=== PATIENT | male | born 1950 | race Caucasian/White ===

== ENCOUNTER 2017-07-17 10:26 | Emergency (ER) | payer MEDICARE, OTHER ==
[2017-07-17] MEDS ORDERED: Aspirin 325 MG TAB ONE (11:04)
--- NOTE | 2017-07-17 11:15 | RAD ---
PORTABLE CHEST 1 VIEW: Date: 07/17/17 Time: 1054 hours HISTORY: Chest pain. FINDINGS/IMPRESSION: Comparison made with exam of 05/31/15. Changes of median sternotomy are again seen. The heart size is prominent. The lungs are well expanded without confluent areas of consolidation, pneumothorax, haley pulmonary edema, or pleural effusions. POS: [facility]
[2017-07-17 11:49] LABS: INR-International Normal Ratio 1.2; Prothrombin Time 15.2 SEC (12.0-14.7)
[2017-07-17 11:50] LABS: PTT 31.5 SEC (22.9-36.1)
[2017-07-17 11:53] LABS: #Eosinphils 0.1 thou/uL (0.0-0.7); #Lymphocytes 1.4 thou/uL (1.20-3.40); #Monocytes 0.3 thou/uL (0.11-0.59); %Basophils 0.9 % (0.0-1.0); %Eosinophils 2.7 % (0.0-10.0); %Lymphocytes 27.9 % (21.0-51.0); %Monocytes 6.8 % (0.0-10.0); %Neutrophils 61.7 % (42.0-75.0); Hemoglobin 15.8 g/dL (14.0-18.0); Mean Corpuscular HGB CONC 34.2 g/dL (32.0-36.0); Mean Corpuscular Hemoglobin 32.4 pg (27.0-31.0); Mean Corpuscular Volume 94.8 fl (80.0-94.0); PLT Morphology Comment Appears Decreased; Platelet Count 78 thou/uL (130-400); RBC Distribution Width 12.8 % (11.5-14.5); Red Blood Cell (RBC) Count 4.86 mill/uL (4.70-6.10); White Blood Cell (WBC) Count 4.9 thou/uL (4.8-10.8)
[2017-07-17 12:01] LABS: Bilirubin, Total 0.8 mg/dL (0.2-1.2); Calcium 9.3 mg/dL (7.8-10.44); Globulin 3.2 g/dL (2.4-3.5); Magnesium 2.2 mg/dL (1.6-2.6); Potassium 4.5 mmol/L (3.5-5.1); Protein, Total 7.2 g/dL (5.8-8.1)
[2017-07-17 12:03] LABS: CKMB 1.6 ng/mL (0-6.6); Troponin I 0.011 ng/mL (< 0.028)
== END 2017-07-17 13:11 | disposition short-term general hospital (02) ==
LOC: MADERS 10:26
DX: I49.9 Cardiac arrhythmia, unspecified (principal); E78.5 Hyperlipidemia, unspecified; K74.60 Unspecified cirrhosis of liver; I10 Essential (primary) hypertension; Z87.891 Personal history of nicotine dependence; Z79.82 Long term (current) use of aspirin; Z79.899 Other long term (current) drug therapy
CPT/HCPCS: 36415; 71045; 80053; 82553; 83735; 83880; 84484; 85025; 85610; 85730; 93005; 94760

== ENCOUNTER 2018-02-25 10:34 | Emergency (ER) | payer MEDICARE ==
[2018-02-25] MEDS ORDERED: Lidocaine 1% 20 ML MDV ONE (10:51)
[2018-02-25] MEDS ORDERED: Sulfameth/Trimethoprim DS 800-160mg TAB ONE (11:38)
== END 2018-02-25 11:35 | disposition home or self-care (01) ==
LOC: MADERS 10:34
DX: L02.31 Cutaneous abscess of buttock (principal); Z79.899 Other long term (current) drug therapy; Z79.82 Long term (current) use of aspirin
CPT/HCPCS: 10060; J2001

== ENCOUNTER 2018-02-27 08:44 | Emergency (ER) | payer MEDICARE | END 2018-02-27 09:30 | disposition home or self-care (01) | LOC: MADERS 08:44 | DX: Z48.817 Encounter for surgical aftercare following surgery on the skin and subcutaneous tissue (principal); I10 Essential (primary) hypertension; F17.220 Nicotine dependence, chewing tobacco, uncomplicated; K74.60 Unspecified cirrhosis of liver; Z79.82 Long term (current) use of aspirin; Z79.899 Other long term (current) drug therapy | CPT/HCPCS: 99282 ==

== ENCOUNTER 2018-03-27 07:35 | Emergency (ER) | payer MEDICARE ==
--- NOTE | 2018-03-27 09:16 | RAD ---
PA AND LATERAL CHEST: History: Cough and wheezing. FINDINGS/IMPRESSION: Comparison is made with exam of 09-03-16. There are changes of median sternotomy. The heart size is borderline. The lungs are well expanded. No pneumothorax or pleural effusion are seen. No lobar consolidation is identified. There is suggestion of a nodular density in the posterior lower lung on the lateral view only. This was not seen on the comparison study. Further evaluation with CT scan is recommended. Code T
[2018-03-27] MEDS ORDERED: guaiFENesin ER 600 MG TAB ONE (09:24)
[2018-03-27] MEDS ORDERED: Ibuprofen 600 MG TAB ONE (09:24)
--- NOTE | 2018-03-27 10:16 | CT ---
CHEST CT SCAN WITHOUT IV CONTRAST: History: Cough, nodular lesion on chest x-ray in a 67-year-old male. Comparison: Chest plain film 03-27-18. Prior CT abdomen/pelvis 05-21-16. FINDINGS: Post underlying sternotomy. Extensive three vessel coronary artery calcific disease. Two small calcif ied nodules in the right upper lobe, evidence for old granulomatous disease. Splenomegaly with the sp elke measuring 16 cm. Lymph node noted in the left paracardial fat pad up to [address] able from the prior 2016 study. No evidence for other pulmonary nodule. I feel that the density seen on the lateral view on the prior chest x-ray is probably just a confluence of vessels. Multiple galls tones. Hepatic changes in the liver. IMPRESSION: Two very tiny calcified granulomata in the right upper lobe. No evidence for other pulmonary nodule. The density seen on the lateral view of the chest x-ray is presumed to be just a confluence of shadow s. No evidence for associated pulmonary nodule. Splenomegaly. Cholelithiasis. Stable lymph node in th e left pericardial fat. Other findings are stable. POS: [facility]
== END 2018-03-27 09:40 | disposition home or self-care (01) ==
LOC: MADERS 07:35
DX: J20.9 Acute bronchitis, unspecified (principal); J06.9 Acute upper respiratory infection, unspecified; I25.2 Old myocardial infarction; I10 Essential (primary) hypertension; F17.220 Nicotine dependence, chewing tobacco, uncomplicated; Z79.82 Long term (current) use of aspirin; Z79.899 Other long term (current) drug therapy
CPT/HCPCS: 71046; 71250; J7620

== ENCOUNTER 2018-03-31 14:13 | Emergency (ER) | payer MEDICARE | END 2018-03-31 15:16 | disposition home or self-care (01) | LOC: MADERS 14:13 | DX: J20.9 Acute bronchitis, unspecified (principal); I25.2 Old myocardial infarction; I10 Essential (primary) hypertension; F17.220 Nicotine dependence, chewing tobacco, uncomplicated; Z79.82 Long term (current) use of aspirin; Z79.899 Other long term (current) drug therapy | CPT/HCPCS: 99283 ==

== ENCOUNTER 2018-04-17 09:41 | Emergency (ER) | payer MEDICARE | END 2018-04-17 10:15 | disposition home or self-care (01) | LOC: MADERS 09:41 | DX: Z48.817 Encounter for surgical aftercare following surgery on the skin and subcutaneous tissue (principal); I10 Essential (primary) hypertension; I25.2 Old myocardial infarction; F17.220 Nicotine dependence, chewing tobacco, uncomplicated; Z79.899 Other long term (current) drug therapy; Z79.82 Long term (current) use of aspirin; K74.60 Unspecified cirrhosis of liver | CPT/HCPCS: 99282 ==

== ENCOUNTER 2019-05-17 01:29 | Emergency (ER) | payer MEDICARE ==
[2019-05-17 02:27] LABS: ALT (SGPT) 46 U/L (8-55); AST (SGOT) 22 U/L (5-34); Albumin 4.1 g/dL (3.4-4.8); Alkaline Phosphatase 64 U/L (40-110); Anion Gap 12 mmol/L (10-20); BUN (Urea Nitrogen) 18 mg/dL (8.4-25.7); Bilirubin, Total 0.5 mg/dL (0.2-1.2); Calc. Creatinine Clearance 0 mL/min (70-130); Calcium 9.6 mg/dL (7.8-10.44); Carbon Dioxide 26 mmol/L (23-31); Chloride 104 mmol/L (98-107); Estimated GFR-MDRD 86; Glucose 143 mg/dL (80-115); Magnesium 1.8 mg/dL (1.6-2.6); Protein, Total 7.1 g/dL (5.8-8.1); Sodium 138 mmol/L (136-145)
[2019-05-17 02:33] LABS: #Eosinphils 0.1 thou/uL (0.0-0.7); #Monocytes 0.3 thou/uL (0.11-0.59); #Neutrophils 2.7 thou/uL (1.40-6.50); %Basophils 0.6 % (0.0-1.0); %Eosinophils 1.8 % (0.0-10.0); %Lymphocytes 24.2 % (21.0-51.0); %Monocytes 6.8 % (0.0-10.0); %Neutrophils 66.5 % (42.0-75.0); Hemoglobin 14.9 g/dL (14.0-18.0); MDiff Complete? YES; Macrocytosis MODERATE=16-30 cells (100X) (0-5/hpf); Mean Corpuscular HGB CONC 31.3 g/dL (32.0-36.0); Mean Corpuscular Hemoglobin 31.2 pg (27.0-31.0); Mean Corpuscular Volume 99.6 fL (78.0-98.0); Mean Platelet Volume 11.7 fL (7.4-10.4); Platelet Count 71 thou/uL (130-400); RBC Distribution Width 12.5 % (11.5-14.5); Red Blood Cell (RBC) Count 4.78 mill/uL (4.70-6.10)
== END 2019-05-17 02:56 | disposition home or self-care (01) ==
LOC: MADERS 01:29
DX: I10 Essential (primary) hypertension (principal); I25.2 Old myocardial infarction; F17.220 Nicotine dependence, chewing tobacco, uncomplicated
CPT/HCPCS: 36415; 80053; 83735; 84443; 85025; 93005

== ENCOUNTER 2019-05-30 09:56 | Outpatient (CLI) | payer MEDICARE ==
--- NOTE | 2019-05-30 10:14 | RAD ---
Chest 2 views HISTORY: Bronchitis. COMPARISON: 03/27/2018. FINDINGS: Cardiac silhouette is unremarkable. Pulmonary vasculature upper limits of normal. Mediastin um is midline with postoperative changes. No confluent airspace consolidation, pneumothorax, or pleural fluid evident. IMPRESSION: Borderline pulmonary vascular congestion. No focal inflammation evident.
== END 2019-05-30 09:57 | disposition home or self-care (01) ==
LOC: MADRAD 09:56
PROVIDERS: ATTEND Physician Assistant
DX: J40 Bronchitis, not specified as acute or chronic (principal)
CPT/HCPCS: 71046

== ENCOUNTER 2023-06-14 16:02 | Emergency (ER) | payer MEDICARE ==
[2023-06-14] MEDS ORDERED: Lidocaine 1% w/Epinephrine 1:100K 20 ML VIAL ONE (16:38)
[2023-06-14] MEDS ORDERED: Boostrix 0.5 ML (Tdap) VIAL (>/=7 yrs of age) ONE (16:38)
[2023-06-14] MEDS ORDERED: Bacitracin 1 PK ONE (17:42)
== END 2023-06-14 17:47 | disposition home or self-care (01) ==
LOC: MADERS 16:02
DX: S61.512A Laceration without foreign body of left wrist, initial encounter (principal); I10 Essential (primary) hypertension; F17.220 Nicotine dependence, chewing tobacco, uncomplicated; W31.2XXA Contact with powered woodworking and forming machines, initial encounter
CPT/HCPCS: 12032; 90471; 90715